=== PATIENT | male | born 1950 | race African-American/Black ===

== ENCOUNTER 2016-08-06 16:00 | Emergency (ER) | payer OTHER, BC ==
[~2016-08-06] VITALS: Ht 182.9 cm; Wt 95.3 kg
[~2016-08-06 16:00] MED LIST: ASPIR 8181 MG PO; ATENOLOL 100MG100 MG PO; HYDROCHLOROTHIA25 M2 PO; LISINOPRIL10 MG PO; ZOFRAN ODT4 MG PO
[2016-08-06] MEDS ORDERED: PREDNISONE 20 M20 MG PO (16:17)
[2016-08-06] MEDS ORDERED: NORCO 5-325 TA1 EACH PO (16:17)
[2016-08-06 16:22] VITALS: BP 186/105
== END 2016-08-06 17:05 | disposition home or self-care (01) ==
LOC: ER 16:00
DX: M10.072 Idiopathic gout, left ankle and foot (principal); I10 Essential (primary) hypertension; I48.91 Unspecified atrial fibrillation; F10.99 Alcohol use, unspecified with unspecified alcohol-induced disorder; Z86.73 Personal history of transient ischemic attack (TIA), and cerebral infarction without residual deficits; Z87.891 Personal history of nicotine dependence

== ENCOUNTER 2016-12-01 04:15 | Emergency (ER) | payer OTHER, BC ==
[~2016-12-01] VITALS: Ht 182.9 cm; Wt 92.5 kg
--- NOTE | ~2016-12-01 | EKG ---
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 : 1950 Requested By: Annalisa Schultz Order Number: [id number] MD: Karson Jenkins Measurements Intervals [place] Rate: 61 P: 56 MO: 153 QRS: -21 QRSD: 102 T: 166 QT: 551 QTc: 555 Interpretive Statements Sinus rhythm LVH with secondary repolarization abnormality Prolonged QT interval No previous ECG available for comparison Electronically Signed On 12-01-2016 7:47:46 CDT by Karson Jenkins [email or web address] <ELECTRONICALLY SIGNED> By: Karson Jenkins MD, [facility] 12/01/16 0747 0510 0510 Karson Jenkins MD, FACC /EPI
[~2016-12-01 04:15] MED LIST changes: +NORCO 5-325 TA1 EACH PO; +PREDNISONE 20 M20 MG PO
[2016-12-01] MEDS ORDERED: ELIQUIS5 MG PO (04:52)
[2016-12-01] MEDS ORDERED: PHENERGAN 25 MG25 M1 PO (04:54)
[2016-12-01] MEDS ORDERED: ZOFRAN ODT4 MG PO (04:54)
[2016-12-01 04:55] LABS: HEMATOCRIT 50.5 % (42.0-52.0); HEMOGLOBIN 16.9 gm/dL (14.0-18.0); MCH 29.5 pg (26.0-34.0); MCHC 33.5 g/dL (28.0-37.0); MCV 88.2 fL (80.0-100.0); PLATELET COUNT 204 thou/uL (150-400); RBC 5.73 mil/uL (4.50-6.00); RDW 14.9 % (10.5-14.5); WBC 7.9 thou/uL (4.0-11.0)
[2016-12-01 04:56] LABS: MANUAL DIFF YES
[2016-12-01 05:01] LABS: ANION GAP 8 mmol/L (7-16); BUN 21 mg/dL (7-18); CALCIUM 9.4 mg/dL (8.5-10.1); CHLORIDE 104 mmol/L (98-107); CO2 25 mmol/L (21-32); CREATININE 1.6 mg/dL (0.7-1.3); GLUCOSE 123 mg/dL (74-106); POTASSIUM 5.5 mmol/L (3.5-5.1); SODIUM 137 mmol/L (136-145)
[2016-12-01 05:07] LABS: ALBUMIN 3.9 g/dL (3.4-5.0); ALKALINE PHOSPHATASE 65 U/L (46-116); DIRECT BILIRUBIN < 0.1 mg/dL (<0.1-0.3); SGOT 41 U/L (15-37); SGPT 36 U/L (30-65); TOTAL BILIRUBIN 0.9 mg/dL (<0.1-1.0); TOTAL PROTEIN 8.5 g/dL (6.4-8.2)
[2016-12-01 05:19] LABS: ABSOLUTE NEUTROPHILS 7.3 thou/uL (1.4-8.2); TOTAL CELL COUNT 100
[2016-12-01 05:34] VITALS: BP 143/85
== END 2016-12-01 05:49 | disposition home or self-care (01) ==
LOC: ER 04:15
PROVIDERS: Emergency Medicine
DX: N28.9 Disorder of kidney and ureter, unspecified (principal); I10 Essential (primary) hypertension; I48.91 Unspecified atrial fibrillation; Z86.73 Personal history of transient ischemic attack (TIA), and cerebral infarction without residual deficits; F10.99 Alcohol use, unspecified with unspecified alcohol-induced disorder; Z87.891 Personal history of nicotine dependence